=== PATIENT | female | born 1950 | race Caucasian/White ===

== ENCOUNTER 2018-08-12 09:05 | Inpatient (IN) | payer MEDICARE, BC ==
[2018-08-12] MEDS ORDERED: NS 0.9% 1000 ML* 1,000 ML IV ONE (09:33)
--- NOTE | 2018-08-12 09:42 | ED ---
HPI Chest Pain - HPI Summary HPI Summary: Patient is a 68 y/o F w/ c/o midsternal chest pain with radiation to back onsetting today at around 0100. Patient [facility] at [facility] today prior to arrival, she did not receive ASA or nitro. She arrived to ED via private car. She also reports epigastric pain. Patient states pain is constant while lying flat, sitting up alleviates pain. She denies pain with ambulation/ exertion. She notes that she also experienced hot flashes, near syncope, nausea and diarrhea. She denies PMHx of HTN, diabetes and previous cardiac stress test. FMHx of cardiac disease in both parents is noted. Patient states she has never smoked. PSHx of cholecystectomy. LE edema, SOB is denied. Pain is room is noted to have slightly lessened in the room. Patient denies pain medication. On triage, pain is rated 6/10, nothing is noted to aggravate/alleviate Sx. Home medications and allergies are reviewed. - History of Current Complaint Chief Complaint: EDChestPainROMI Time Seen by Provider: 08/12/18 09:21 Hx Obtained From: Patient Onset/Duration: Started Hours Ago - onset today 0100, Still Present Timing: Constant Pain Intensity: 6 - Allergy/Home Medications Allergies/Adverse Reactions: Allergies Allergy/AdvReac Type Severity Reaction Status Date / Time cefaclor Allergy Swelling Verified 08/12/18 08:11 Of Face,Lips,& Throat cefuroxime Allergy Swelling Verified 08/12/18 08:11 Of Face,Lips,& Throat celecoxib Allergy Swelling Verified 08/12/18 08:11 Of Face,Lips,& Throat erythromycin base Allergy GI Upset Verified 08/12/18 09:19 Penicillins Allergy Swelling Verified 08/12/18 08:11 Of Face,Lips,& Throat pineapple Allergy Swelling Verified 08/12/18 08:11 Of Face,Lips,& Throat pneumococcal 7-valent Allergy Swelling Verified 08/12/18 13:16 conjugate to Of Face,Lips,& Throat pneumococcal vaccine Allergy Swelling Verified 08/12/18 13:16 Of Face,Lips,& Throat rofecoxib Allergy Swelling Verified 08/12/18 08:11 Of Face,Lips,& Throat Sulfa (Sulfonamide Allergy Swelling Verified 08/12/18 08:11 Antibiotics) Of Face,Lips,& Throat Home Medications: Home Medications Gabapentin CAP(*) [Neurontin 400 mg CAP(*)] 400 mg PO BID 08/12/18 [History Confirmed 08/12/18] Glucosam/Chond/Collagen/Hyalur [Glucosamine Chondroitin/C] 1 cap PO DAILY [History Confirmed 08/12/18] Omeprazole CAP* [Prilosec CAP* 20 MG] 20 mg PO DAILY 08/12/18 [History Confirmed 08/12/18] Ranitidine TAB (NF) [Zantac TAB (NF)] 150 mg PO DAILY 08/12/18 [History Confirmed 08/12/18] Risedronate (NF) [Actonel (NF)] 150 mg PO MONTHLY 08/12/18 [History Confirmed ] Rosuvastatin (NF) [Crestor (NF)] 5 mg PO EVERY OTHER DAY 08/12/18 [History Confirmed 08/12/18] Spironolactone TAB* [Aldactone TAB*] 25 mg PO DAILY 08/12/18 [History Confirmed 08/12/18] PMH/Surg Hx/FS Hx/Imm Hx Endocrine/Hematology History: Denies: Hx Diabetes, Hx Thyroid Disease Cardiovascular History: Denies: Hx Hypertension, Hx Pacemaker/ICD Respiratory History: Denies: Hx Asthma, Hx Chronic Obstructive Pulmonary Disease (COPD) GI History: Denies: Hx Ulcer History: Denies: Hx Renal Disease Sensory History: Denies: Hx Hearing Aid Psychiatric History: Denies: Hx Panic Disorder - Surgical History Surgery Procedure, Year, and Place: 2 c-sections and choley Infectious Disease History: No Infectious Disease History: Denies: Hx Hepatitis, Hx Human Immunodeficiency Virus (HIV), Traveled Outside the [place] in Last 30 Days - Family History Known Family History: Positive: Cardiac Disease, Hypertension - Social History Alcohol Use: Occasionally Substance Use Type: Reports: None Smoking Status (MU): Never Smoked Tobacco Review of Systems All Other Systems Reviewed And Are Negative: Yes Physical Exam - Summary Physical Exam Summary: Appearance: Well appearing, no pain distress Skin: warm, dry, reflects adequate perfusion Head/face: normal Eyes: EOMI, SAMRA ENT: normal Neck: supple, non-tender Respiratory: CTA, breath sounds present Cardiovascular: RRR, pulses symmetrical Abdomen: epigastric tenderness, soft Bowel: present Musculoskeletal: normal, strength/ROM intact Neuro: normal, sensory motor intact, A&Ox3 Triage Information Reviewed: Yes Vital Signs On Initial Exam: Initial Vitals Temp Pulse Resp BP Pulse Ox 98 F 70 21 148/90 99 08/12/18 09:19 08/12/18 09:19 08/12/18 09:19 08/12/18 09:19 08/12/18 09:19 Vital Signs Reviewed: Yes Diagnostics - Vital Signs Vital Signs Temp Pulse Resp BP Pulse Ox 08/12/18 09:19 98 F 70 21 148/90 99 - Laboratory Result Diagrams: 08/12/18 10:06 08/12/18 10:06 Lab Statement: Any lab studies that have been ordered have been reviewed, and results considered in the medical decision making process. - Radiology CXR Radiology Interpretation Completed By: Radiologist Summary of Radiographic Findings: No active cardiopulmonary disease, this report was reviewed by ED physician. - CT chest/abdomen/pelvis CT Interpretation Completed By: Radiologist Summary of CT Findings: IMPRESSION: 1. NO AORTIC INTIMAL FLAP TO SUGGEST DISSECTION. 2. NO PULMONARY ARTERIAL FILLING DEFECT TO SUGGEST PULMONARY EMBOLISM. 3. STATUS POST CYSTECTOMY WITH INTRAHEPATIC AND EXTRAHEPATIC BILIARY DILATATION EXTENDING. TO THE LEVEL OF THE COMMON DUCT. 4. PROMINENCE OF THE VASCULATURE ALONG THE LEFT HEMIPELVIS SUGGESTIVE OF PELVIC. CONGESTION SYNDROME IN THE CORRECT CLINICAL SETTING. 5. DIVERTICULOSIS. THIS REPORT WAS REVIEWED BY ED PHYSICIAN. - EKG 0937 Cardiac Rate: NL - rate of 60 bpm EKG Rhythm: Sinus Rhythm Summary of EKG Findings: no acute changes Re-Evaluation - Re-Evaluation First Eval Re-Evaluation Time: 12:18 Comment: Discussed results of tests and labs as well as admission with patient. Patient is agreeable with admission. Chest Pain Course/Dx - Course Course Of Treatment: Patient is a 68 y/o F w/ c/o midsternal chest pain with radiation to back onsetting today at around 0100. Patient was seen at [facility] today prior to arrival, she did not receive ASA or nitro. She also reports epigastric pain. She denies pain with ambulation/exertion. She notes that she also experienced hot flashes, near syncope, nausea and diarrhea. LE edema, SOB is denied. Physical exam showed epigastric tenderness. During ED course, patient received fluids. CXR showed no active cardiopulmonary disease, this report was reviewed by ED physician. EKG showed sinus rhythmn with rate of 60 BPM, no acute changes. Bloodwork/UA obtained. CTA CHEST/THORAX/PELVIS IMPRESSION: 1. NO AORTIC INTIMAL FLAP TO SUGGEST DISSECTION. 2. NO PULMONARY ARTERIAL FILLING DEFECT TO SUGGEST PULMONARY EMBOLISM. 3. STATUS POST CYSTECTOMY WITH INTRAHEPATIC AND EXTRAHEPATIC BILIARY DILATATION EXTENDING. TO THE LEVEL OF THE COMMON DUCT. 4. PROMINENCE OF THE VASCULATURE ALONG THE LEFT HEMIPELVIS SUGGESTIVE OF PELVIC. CONGESTION SYNDROME IN THE CORRECT CLINICAL SETTING. 5. DIVERTICULOSIS. 1215 - Patient's case was discussed with Dr. Ray. Dr. Ray accepts for admission. Patient is agreeable with admission. Dx of abdominal pain, pancreatitis and hepatitis. needs MRCP/ ERCP - Chest Pain Differential Diagnosis/HQI/PQRI: Acute UT, GI Disease, Other: - abd pain - Diagnoses Provider Diagnoses: Abdominal pain, Hepatitis, Pancreatitis - Provider Notifications Discussed Care Of Patient With: Elsy Ray Time Discussed With Above Provider: 12:15 Instructed by Provider To: Other - 1215 - Patient's case was discussed with Dr. Rya. Dr. Ray accepts for admission. Discharge - Sign-Out/Discharge Documenting (check all that apply): Patient Departure - admit - Discharge Plan Condition: Good Disposition: ADMITTED TO [facility] Referrals: Cheyenne Carpenter MD [Primary Care Provider] - - Billing Disposition and Condition Condition: GOOD Disposition: Admitted to [facility] - Attestation Statements Document Initiated by Daviibe: Yes Documenting Scribe: Emerson Arevalo Provider For Whom Scribe is Documenting (Include Credential): Andre Denny MD Scribe Attestation: Emerson Kowalski , scribed for Andre Denny MD on 08/12/18 at 1437. Scribe Documentation Reviewed: Yes Provider Attestation: The documentation as recorded by the Emerson ortega accurately reflects the service I personally performed and the decisions made by me, Andre Denny MD
--- NOTE | 2018-08-12 10:11 | RAD ---
HISTORY: cp COMPARISONS: None VIEWS: 1: frontal AP view of the chest at 9:47 AM FINDINGS: LINES AND TUBES: None. CARDIOMEDIASTINAL SILHOUETTE: The cardiomediastinal silhouette is normal for portable technique. PLEURA: The costophrenic angles are sharp. No pleural abnormalities are noted. LUNG PARENCHYMA: The lungs are clear. ABDOMEN: The upper abdomen is clear. There is no subphrenic gas. BONES AND SOFT TISSUES: No bone or soft tissue abnormalities are noted. IMPRESSION: NO ACTIVE CARDIOPULMONARY DISEASE.
[2018-08-12 10:50] LABS: ABS Basophils 0 10^3/ul (0-0.2); ABS Eosinophils 0 10^3/ul (0-0.6); ABS Lymphocytes 0.6 10^3/ul (1.0-4.8); ABS Monocytes 0.5 10^3/ul (0-0.8); ABS Neutrophils 7.1 10^3/ul (1.5-7.7); ABS Nucleated RBC 0 10^3/ul; Eosinophil % 0.2 % (0-6); Hematocrit 43 % (35-47); Lymphocyte % 7.4 % (25-47); Mean Corpuscular HGB Conc 35 g/dl (31-36); Mean Corpuscular Hemoglobin 32 pg (27-31); Mean Corpuscular Volume 91 fL (80-97); Mean Platelet Volume 8.1 um3 (7.4-10.4); Nucleated Red Blood Cells % 0; Platelet Count 237 10^3/ul (150-450); Red Blood Count 4.74 10^6/ul (4.00-5.40); Red Cell Distribution Width 14 % (10.5-15); White Blood Count 8.2 10^3/ul (3.5-10.8)
[2018-08-12 11:01] LABS: EGFR Non-African American 69.9 (>60)
[2018-08-12] MEDS ORDERED: Iohexol 350* (CONTRAST) 500 ML MDV IV ONE (11:05)
[2018-08-12 11:36] LABS: Urine Appearance Clear; Urine Blood 1+ (Negative); Urine Color Yellow; Urine Ketones Negative (Negative); Urine Protein Negative (Negative); Urine Red Blood Cell Trace(0-2/hpf) (Absent); Urine Specific Gravity 1.004 (1.010-1.030); Urine Urobilinogen Negative (Negative); Urine White Blood Cell Trace(0-5/hpf) (Absent)
--- NOTE | 2018-08-12 11:47 | RAD ---
HISTORY: chest pain/epigastric pain radiating to the back COMPARISONS: None TECHNIQUE: Multiple contiguous axial CT scans were obtained of the chest, abdomen, and pelvis after the administration of intravenous contrast. Coronal and sagittal multiplanar reformations are submitted for review.. Oral contrast was not administered. 3-D volumetric reconstructions of the aorta are also submitted for review. FINDINGS: CHEST NECK AND THYROID: The lower neck and thyroid are unremarkable. CHEST WALL: There is no lower cervical, axillary, or supraclavicular lymphadenopathy by size criteria. HEART AND PERICARDIUM: The heart is unremarkable. AORTA AND PULMONARY VASCULATURE: The aorta and pulmonary vasculature are normal. There is no pulmonary arterial filling defect to suggest pulmonary embolism. There is no intimal flap to suggest aortic dissection. There is no aortic aneurysmal dilatation or periaortic hematoma. MEDIASTINUM: There is no mediastinal lymphadenopathy by size criteria. CHRISTINA: There is no hilar lymphadenopathy by size criteria. AIRWAY AND ESOPHAGUS: The airway is unremarkable, without endobronchial filling defect. The esophagus is grossly normal. LUNG PARENCHYMA: The lungs are clear. PLEURA: No pleural abnormalities are noted. BONES AND SOFT TISSUES: Mild degenerative changes are noted. ABDOMEN/PELVIS: LIVER: The liver is normal in shape, size, contour, and attenuation. BILE DUCTS: There is dilatation of the common duct up to 1.8 cm. There is moderate intrahepatic biliary dilatation. The common duct dilatation extends to the level of the ampulla. GALLBLADDER: The gallbladder is not visualized. Surgical clips are noted in the gallbladder fossa. PANCREAS: The pancreas is normal, without mass or ductal dilatation. SPLEEN: Normal in size and appearance. UPPER GI TRACT: Evaluation of the gastrointestinal tract is limited by incomplete gastric distention. The upper GI tract is unremarkable. SMALL BOWEL & MESENTERY: The small bowel is normal in contour, course, and caliber. There is no obstruction or dilatation. COLON: There are multiple diverticula of the distal colon. There are also scattered diverticula of the ascending colon. There is no pericolonic inflammatory change. ADRENALS: Normal bilaterally. KIDNEYS: The kidneys are normal in shape, size, contour, and axis. There is no hydronephrosis or nephrolithiasis. BLADDER: The bladder is smooth in contour. PELVIC ORGANS: There is prominence of the pelvic vasculature on the left with enlargement of the left gonadal vein with early filling. The uterus and adnexa are otherwise grossly normal for technique. AORTA: The aorta is normal. IVC: Unremarkable LYMPH NODES: There is no lymphadenopathy by size criteria. ABDOMINAL WALL: There is no evidence for abdominal wall hernia. BONES AND SOFT TISSUES: There is grade 1 anterolisthesis of L4 on L5. Mild degenerative changes are noted. OTHER: None IMPRESSION: 1. NO AORTIC INTIMAL FLAP TO SUGGEST DISSECTION. 2. NO PULMONARY ARTERIAL FILLING DEFECT TO SUGGEST PULMONARY EMBOLISM. 3. STATUS POST CYSTECTOMY WITH INTRAHEPATIC AND EXTRAHEPATIC BILIARY DILATATION EXTENDING TO THE LEVEL OF THE COMMON DUCT. 4. PROMINENCE OF THE VASCULATURE ALONG THE LEFT HEMIPELVIS SUGGESTIVE OF PELVIC CONGESTION SYNDROME IN THE CORRECT CLINICAL SETTING. 5. DIVERTICULOSIS.
[2018-08-12 12:01] LABS: INR 0.86 (0.77-1.02)
[2018-08-12] MEDS ORDERED: Ondansetron INJ* 2 MG/ML VIAL IV PRN (13:08)
[2018-08-12] MEDS ORDERED: Morphine INJ* 4 MG/ML 1 ML SYRINGE (NEW SYRINGE VERSION) IV PRN (13:08)
[2018-08-12] MEDS ORDERED: Heparin VIAL(*) 5000 UNITS/ML VIAL (FIVE THOUSAND) SUBCUT SCH (14:00)
--- NOTE | 2018-08-12 16:07 | RAD ---
HISTORY: Question common bile duct stone COMPARISONS: CTA dated August 12, 2018 TECHNIQUE: The following sequences were obtained of the abdomen as part of an MRCP: Axial T2-weighted images, coronal single shot fast spin-echo T2-weighted images, coronal heavily T2-weighted MRCP images with 3-D thick slab maximum intensity projection reconstructions. FINDINGS: LIVER: No focal parenchymal mass. GALLBLADDER: The patient is status post cholecystectomy. BILIARY TREE: Again noted is intrahepatic and extrahepatic biliary dilatation. There is dilatation of the residual cystic duct. The common duct dilatation extends to the level of the ampulla. There is no appreciable filling defect. PANCREAS: The pancreatic duct is patent without filling defect or cut off or dilatation. SPLEEN: Homogeneous in signal intensity. BOWEL: Unremarkable KIDNEYS: Simple renal cysts are noted. BONES AND SOFT TISSUES: Unremarkable IMPRESSION: AGAIN NOTED IS INTRAHEPATIC AND EXTRAHEPATIC BILIARY DILATATION, EXTENDING TO THE LEVEL OF THE AMPULLA, WITHOUT APPRECIABLE FILLING DEFECT TO SUGGEST COMMON DUCT STONE.
[2018-08-12] MEDS: NS 0.9% 1000 ML* 1,000 ML IV SCH (16:26)
[2018-08-12] MEDS: Pantoprazole IV* 40 MG IV SCH (16:51)
--- NOTE | 2018-08-12 20:09 | HP ---
AMENDED REPORT NOW INCLUDES DESIGNATED COSIGNER CC: Cheyenne Madrid MD. * HISTORY AND PHYSICAL: DATE OF ADMISSION: 08/12/18 PRIMARY CARE PHYSICIAN: Cheyenne Madrid MD ATTENDING PHYSICIAN: Elsy Ray MD * (dictation provided by Zoie Gavin NP) CHIEF COMPLAINT0: Diarrhea, epigastric and chest pain radiating into her back. HISTORY OF PRESENT ILLNESS: Ms. Yu is a 68-year-old female with a past medical history of GERD, cholecystectomy, and 2 C-sections who presents to the hospital today with concern for the sudden onset of diarrhea last night with epigastric and chest pain radiating into her back. Ms. Yu states that she was in her normal state of health until yesterday. During the day, she had what she describes as frequent and excessive gas. She began to have diarrhea in the evening. She then had diarrhea throughout the night and was up multiple times. She reports liquid yellow stool. She had mid to epigastric pain radiating up into her chest and then radiating into her back as well. She went to [facility] this morning for evaluation, but was told that she needed evaluation in the emergency room. She drove here by car. She denies any recent shortness of breath or cough. She has had no fever. In the emergency room, Ms. Yu had labs, which showed normal white blood cell count and no fever. She had elevated LFTs with a total bilirubin of 2.6, AST 493, ALT 281. Alk phos 109 as well as an elevated lipase at 175. Her electrolytes and kidney function were normal. Her troponin was normal. She had a chest, abdomen and pelvis CTA, which showed concern for intra and extrahepatic ductal dilatation, all the way up to the common bile duct. PAST MEDICAL HISTORY: 1. GERD. 2. Cholecystectomy in [address] [facility]. 3. x2. 4. Mild lower extremity edema, treated with spironolactone. 5. Osteoporosis. The patient states because of a history of liver cancer in her paternal grandparents, she has had frequent evaluations with an upper and lower endoscopy with Dr. Edwards who is a warehouse director in [place]. The patient states that in the past she has had stomach polyps. Her last upper endoscopy was in January and it was negative per report. At that time, she also had a colonoscopy that was also reported to be negative. MEDICATIONS: 1. Glucosamine chondroitin 1 cap p.o. daily. 2. Rosuvastatin 5 mg p.o. every other day. 3. Risedronate 150 mg p.o. monthly. 4. Ranitidine 150 mg p.o. daily. 5. Spironolactone 25 mg p.o. daily. 6. Gabapentin 400 mg p.o. b.i.d. 7. Omeprazole 20 mg p.o. daily. ALLERGIES: CEFACLOR, CEFUROXIME, CELECOXIB, ERYTHROMYCIN, PENICILLIN, PINEAPPLE , ROFECOXIB, SULFA and PNEUMONIA. FAMILY HISTORY: The patient reports her paternal grandmother and grandfather both had liver cancer. Her mother related to heart failure at 79 and dad related to lung cancer, but also had some heart disease and in his 80s. SOCIAL HISTORY: No report of tobacco or drug use. The patient states she drinks one dorys per night. REVIEW OF SYSTEMS: A 14 point review of systems is completed with Ms. Yu and all those not mentioned above were negative. PHYSICAL EXAMINATION GENERAL APPEARANCE: Ms. Yu is sitting on the bed, she is in no acute distress. She does report some intermittent abdominal cramping and discomfort. She also reports back pain. VITAL SIGNS: Temperature 98, pulse rate 61, respiratory rate 14, O2 saturation 97% on room air, and blood pressure 112/72. HEENT: Extraocular movements are intact. LUNGS: Clear to auscultation bilaterally. No accessory muscle use and good aeration. HEART: S1, S2. No murmurs, rubs or gallops. ABDOMEN: Soft. There is tenderness to deep palpation in the mid abdomen. Bowel sounds are positive. EXTREMITIES: No cyanosis or edema. NEUROLOGIC: She is alert. She is oriented x3. She moves all extremities equally. There is no facial asymmetry or focal weakness. Skin: Intact. DIAGNOSTIC STUDIES/LAB DATA: Sodium 139, potassium 4.1, chloride 106, serum bicarbonate 25, BUN 15, creatinine 0.81, glucose 91, lactic acid 1.0, T. bili 2.6, AST 493, ALT 281, alk phos 109, troponin 0.00 followed by second troponin, which was also 0.00, BNP 38, lipase 175. Urine shows 1+ leuk esterase 1+ blood , no nitrite, no bacteria. The EKG shows sinus rhythm with a heart rate of 60 and no evidence of ischemia. The chest x-ray shows no acute intra-thoracic process. The chest, abdomen, pelvis CTA shows no aortic intimal flap to suggest dissection, no pulmonary arterial filling defect to suggest pulmonary embolism, status post cystectomy with intrahepatic and extrahepatic biliary dilatation extending to the level of the common duct. Prominence of the vasculature along the left hemipelvis suggestive of pelvic congestion syndrome in the correct clinical setting, diverticulosis. ASSESSMENT AND PLAN: Ms. Yu is a 68-year-old female with past medical history of cholecystectomy and gastroesophageal reflux disease who presents to the hospital with concern for the sudden onset yesterday of diarrhea with abdominal pain that radiated into the chest and back. In the emergency room, she has been found to have elevated LFTs and a CT scan showing intra-and extra hepatic ductal dilatation as well as an elevated lipase. Our plans are for inpatient admission as expected length of stay would be greater than 2 days for the followin. Epigastric abdominal and back pain: I think her symptoms are all connected to this finding of intra and extrahepatic ductal dilatation as well as findings of elevated lipase and LFTs. She does have a history cholecystectomy but could have a common bile duct stone. She could also have an extrinsic mass causing dilatation as well. The patient will need MRCP for further evaluation. I have discussed the case with Dr. Romano who will be consulting on her. At this point, the patient has no evidence of infection. She has no leukocytosis, no fever, but we will be monitoring closely for that. At this point, Dr. Romano had stated no antibiotics are indicated. She will have intravenous fluids. She will have has ice chips only. 2. Gastroesophageal reflux disease. Plan to provide pantoprazole IV in lieu of her home medications. 3. Chronic pain. Continue gabapentin. 4. DVT prophylaxis with SCDs only. 5. Diarrhea: The patient reports that she has had diarrhea throughout the night and is now reporting some blood in the stool. It is unclear how this is related to her complaint of upper abdominal pain and biliary dilatation. We will send stool culture. We will monitor H and H and monitor her vital signs. I have discussed this finding with Dr. Romano today. 6. Code status is full code. TIME SPENT: Approximately 60 minutes were spent on the admission of this patient, more than half the time spent with the patient at the bedside reviewing the events leading up to this hospitalization, performing the physical examination, and reviewing the plan of care. ZOIE GAVIN NP [id number]/[facility] #: [id number] DIEGO
[2018-08-12 20:13] LABS: Hematocrit 40 % (35-47); Hemoglobin 13.9 g/dl (12.0-16.0)
[2018-08-12] MEDS: Gabapentin CAP(*) 400 MG PO SCH (20:45)
--- NOTE | 2018-08-13 01:48 | CONS ---
GASTROENTEROLOGY CONSULT: DATE: 08/12/18 - ROOM #416 CONSULTING PRACTITIONERS: Zoie Gavin NP; Cheyenne Carpenter MD REASON FOR CONSULTATION: Chest and epigastric pain with elevated LFTs, but also a preceding complaint of diarrhea, which turned bloody. HISTORY: This 68-year-old woman, who has been treated long-term for acid reflux with omeprazole and ranitidine, last night suddenly developed epigastric and chest pain. She awakened around 1 a.m and says "I thought I was having a heart attack." She got up and chewed on an aspirin as she thought that was something advisable to do and then inexplicably decided to do nothing until the morning. She continued to have intermittent pain. In the ER, cardiac studies were negative, but LFTs were elevated with bili 2.6. In the ER, she was having profuse diarrhea, which turned bloody. The diarrhea actually had started yesterday afternoon before the chest pain and she admits she had had pizza on Wednesday night, then leftover pizza and then greasy nachos through the middle of the day, . She follows up generally with Dr Edwards in [place] for upper endoscopies and colonoscopies, and just had them repeated in January. She believes they were all fine except there was 1 small polyp for the first time on the colonoscopy. PAST MEDICAL HISTORY: 1. Cholecystectomy, 1999. 2. C-sections twice. 3. Osteopenia - on Actonel. 4. Chronic GERD - on a.m. omeprazole and p.m. ranitidine with good control. MEDICATIONS: At home, atenolol 50; hydrochlorothiazide 25; fenofibrate 145 every other day; Zocor 10 mg; metformin 750 in the morning. ALLERGIES: To NUMEROUS ANTIBIOTICS. SOCIAL HISTORY: She lives in [facility] and has a daughter in [place]. She is a lifetime nonsmoker. REVIEW OF SYSTEMS: She is on unselect diet with no dietary restrictions other than pineapple. There is no recent history of URI or infection or antibiotic use. There is no history of lung disease, angina, syncope, palpitations, hepatitis, or jaundice. She is not prone to diarrhea and says her bowel habit is generally regular. PHYSICAL EXAM: She is a healthy-appearing, older woman, in no distress. She says her pain has disappeared. HEENT exam shows no icterus. She has no adenopathy. Her lungs are clear. Her heart sounds are regular. Her abdomen is symmetric with a lower scar corresponding to history with no hernias. There is no mass. Perianal inspection is normal and rectal reveals a withdrawal response and clamping down. She cannot relax. There was no specimen. Extremities show no edema. Neurologic: Nonfocal with normal mentation and cranial nerves with movement of all 4 extremities. LABORATORY DATA: Bilirubin 2.6, ALT 281, alk phos 109. BNP 38. Albumin of 4.1. White count 8.2, hemoglobin 15.0, MCV 91. IMPRESSION: This 68-year-old woman with a history quite characteristic of a passing common duct stone has labs which are compatible with that. A common duct stone can occur even 20 yrs after she had a cholecystectomy. MRCP is requested and her LFTs will be followed serially to determine whether an ERCP would be indicated. There is no sign of cholangitis The history of diarrhea accompanying this and actually preceding the chest pain is unexplained but has persisted and with blood seen out of proportion to hemorrhoidal bleeding has to be respected. Ischemic colitis on top of biliary process is a possibility. Flexible sigmoidoscopy / colon may be warranted depending on her course. [id number]/[facility] #: [id number] [facility]
[2018-08-13] MEDS: NS 0.9% 1000 ML* 1,000 ML IV SCH ×2 (06:23→21:28)
[2018-08-13 07:37] LABS: ABS Basophils 0 10^3/ul (0-0.2); ABS Eosinophils 0 10^3/ul (0-0.6); ABS Lymphocytes 1.1 10^3/ul (1.0-4.8); ABS Monocytes 0.4 10^3/ul (0-0.8); ABS Neutrophils 3.5 10^3/ul (1.5-7.7); ABS Nucleated RBC 0 10^3/ul; Eosinophil % 0.8 % (0-6); Hematocrit 38 % (35-47); Hemoglobin 12.9 g/dl (12.0-16.0); Lymphocyte % 21.6 % (25-47); Mean Corpuscular HGB Conc 34 g/dl (31-36); Mean Corpuscular Hemoglobin 31 pg (27-31); Mean Corpuscular Volume 91 fL (80-97); Mean Platelet Volume 7.8 um3 (7.4-10.4); Nucleated Red Blood Cells % 0.1; Platelet Count 216 10^3/ul (150-450); Red Blood Count 4.13 10^6/ul (4.00-5.40); Red Cell Distribution Width 14 % (10.5-15)
[2018-08-13 07:54] LABS: EGFR Non-African American 85.5 (>60)
[2018-08-13] MEDS: Gabapentin CAP(*) 400 MG PO SCH ×2 (09:16→21:42)
[2018-08-13] MEDS ORDERED: fentaNYL* 50 MCG/ML 2 ML VIAL (100 MCG VIAL) ONE (11:24)
[2018-08-13] MEDS ORDERED: Midazolam* 1 MG/ML 10 ML VIAL (10 MG) ONE (11:25)
[2018-08-13] MEDS ORDERED: Loperamide CAP* 2 MG PO ONE (12:37)
--- NOTE | 2018-08-13 14:48 | PN ---
Subjective Date of Service: 08/13/18 Interval History: Pt seen and examined. Meds and labs reviewed. Pt seen S/P colonoscopy due to her acute watery, with occasional bloody diarrhea. Mentioned that last abd pain was last night. D/W Dr. Romano. CC: Diarrhea ROS: Denied LYON/dizziness, F/C, N/V, CP, SOB, increased cough, sputum production , abd pain, diarrhea, constipation, dysuria, myalgias, arthralgias, throat pain , and new skin lesions. The rest of the 14 point ROS are unremarkable. PHYSICAL EXAM: GEN APPEARANCE: Awake, not in acute distress HEENT: NC/AT, PERRLA, moist oral mucosa, (-) throat erythema NECK: Soft, supple, (-) cervical LAD, (-)JVD HEART: S1S2 WNL, RRR, No MRG CHEST: CTA, BL, GAE, No W/R/R ABD: Soft, ND/NT, NABS 4x Q EXT: No C/C/E SKIN: Warm to touch PSYCH: No active psychosis, hallucinations, depression, SI/HI Objective Active Medications: Gabapentin (Neurontin Cap(*)) 400 mg PO BID [facility] Last Admin: 08/13/18 09:16 Dose: 400 mg Sodium Chloride (Ns 0.9% 1000 Ml*) 1,000 mls @ 75 mls/hr IV PER RATE [facility] Last Admin: 08/13/18 06:23 Dose: 75 mls/hr Loperamide HCl (Imodium Cap*) 2 mg PO Q8H PRN PRN Reason: DIARRHEA Morphine Sulfate (Morphine Inj (Syringe)*) 4 mg IV Q4H PRN PRN Reason: PAIN Ondansetron HCl (Zofran Inj*) 4 mg IV Q6H PRN PRN Reason: NAUSEA Pantoprazole Sodium (Protonix Iv*) 40 mg IV Q24H [facility] Last Admin: 08/12/18 16:51 Dose: 40 mg Vital Signs - 8 hr 08/13/18 08/13/18 08/13/18 07:40 08:00 09:16 Temperature 98.2 F Pulse Rate 81 Respiratory 16 16 16 Rate Blood Pressure 118/61 (mmHg) O2 Sat by Pulse 98 Oximetry 08/13/18 13:10 Temperature 97.6 F Pulse Rate 69 Respiratory 14 Rate Blood Pressure 114/64 (mmHg) O2 Sat by Pulse 97 Oximetry Oxygen Devices in Use Now: None Result Diagrams: 08/13/18 07:06 08/13/18 07:06 Microbiology and Other Data: Microbiology 08/12/18 11:20 Urine Culture - Final Urine No Growth (<1,000 CFU/mL) 08/13/18 01:51 Stool Gross Appearance - Final Stool C. difficile DNA Amplification - Final 027 Presumptive NEGATIVE Toxigenic C.diff NEGATIVE 08/12/18 18:30 Stool Gross Appearance - Final Stool Assess/Plan/Problems-Billing Assessment: - Patient Problems (1) Epigastric pain Current Visit: Yes Status: Acute Code(s): R10.13 - EPIGASTRIC PAIN SNOMED Code(s): 78832134 Comment: -Initially thought to be due to retained stoned post-cholecystectomy, however, MRCP did not reveal any stones in CBD given CTA of abd shows intrahepatic and extrahepatic biliary dilatation at level of CBD -Possible that she could have already passed a retained stone, hence, radiation of pain to the back? -Per Dr. Romano, no ERCP for now given resolution of abd pain and improving LFTsmay reconsider if pt becomes symptomatic once more or LFTs increasing -Colonoscopy surveillance per Dr. Romano reveals purulent ileitis/colitis?? Possibly due to Chrons disease given pt afebrile without leukocytosis and now with resolved abd pain -Doubt ischemic colitis given no suggestion of this from my conversation with Dr. Romano post-colonoscopy, pt having stable VS with no incidence of hypotension, and LDH and lactate level being normal -No evidence of acute pancreatitis (2) Elevated LFTs Current Visit: Yes Status: Acute Code(s): R94.5 - ABNORMAL RESULTS OF LIVER FUNCTION STUDIES SNOMED Code(s): 712227983 Comment: -Please see above discussion -Will rule out for viral hepatitis, especially A&E given diarrhea (3) Diarrhea Current Visit: Yes Status: Acute Code(s): R19.7 - DIARRHEA, UNSPECIFIED SNOMED Code(s): 96592900 Comment: -Unclear cause, however, given above colonoscopy findings in absence of leukocytosis and fevers, possible that pt may have Crohns disease, usually associated with PSC; however, no beaded appearance suggestive of this MRCP -Occasionally bloody -Still possible to maybe due to bile and pancreatic secretion deficiency due to possible intermittent obstruction earlier in course??? Possible from passed retained stone from CBD or viral hepatitis causing diarrhea and LFTs to elevate? -C. diff (-) -Awaiting results of stool culture -Hold Abx for now -Will check and calculate for stool osmolal gap to better define diarrhea type -Agree with starting PO intake with low fat, low fiber, low lactose diet -Awaiting fecal lactoferrin (4) Chest pain Current Visit: Yes Status: Acute Code(s): R07.9 - CHEST PAIN, UNSPECIFIED SNOMED Code(s): 99463998 Comment: -Resolved -Likely from misinterpreted epigastric pain described above -CTA Chest (-) for PE (5) GERD (gastroesophageal reflux disease) Current Visit: Yes Status: Acute Code(s): K21.9 - GASTRO-ESOPHAGEAL REFLUX DISEASE WITHOUT ESOPHAGITIS SNOMED Code(s): 688634919 Comment: -Continue Pantoprazole (6) DVT prophylaxis Current Visit: Yes Status: Acute Code(s): FXZ3735 - SNOMED Code(s): 965315737 Comment: -Continue SCDs given intermittent BRBPR reported by pt Status and Disposition: -As above
[2018-08-13] MEDS: Pantoprazole IV* 40 MG IV SCH (15:05)
--- NOTE | 2018-08-13 15:25 | PRO ---
DATE: 08/13/18 - ROOM #[id number] REFERRING PHYSICIAN: Cheyenne Madrid MD * PROCEDURE: Colonoscopy and ileoscopy with collection of fecal aspirate for culture and biopsy of terminal ileum and mid right colon. INDICATION: This 68-year-old woman developed diarrhea 2 days ago and 8 to 12 hours later, on the same day developed chest pain. She actually took a chewable aspirin at home at 1 a.m. ("I thought I was having a heart attack") and then came to the emergency room 6 or 7 hours later because of both complaints, though the cardiac concern was primary at start and then just an hour later elevated LFTs became of chief focus. She has not had further chest pain. Troponins have been negative and her LFTs have improved somewhat and MRCP negative. She has continued to have loose stools and they have been bloody at times. She has been afebrile throughout with a normal white count initially 8.2, then 5.0 and albumin on presentation was 4.1. Stool was negative for C. diff and stool culture pending. She is not on any antibiotic and actually has listed allergies to 2 CEPHALOSPORINS, PENICILLINS, SULFA, and ERYTHROMYCIN (GI upset for ERYTHROMYCIN) . With continued diarrhea, unprepped colonoscopy is planned. ENDOSCOPIST: Dr. Romano MEDICATIONS: Midazolam 13, fentanyl 150. FINDINGS: She is a slender, older woman, in no distress at this time, though complaining that she has cramps and loose stools recurrently. Her abdomen is flat, with active bowel sounds and it is firm; she has some voluntary guarding, but no rigidity or rebound. Perianal inspection and rectal are normal apart from mucoid diarrhea. Initial views show smooth intact mucosa with some mucus, minimal strands of blood, and a little bit of granularity and patchy erythema. The changes are fairly mild. The scope advances through the sigmoid, descending, and transverse encountering very mild erythema and granular changes of a patchy nature. In the right colon, there are some superficial spotty exudates and more edema and loss of vascular pattern. The ileocecal valve has some purulence around it. The cecum has some vascular pattern evident with mild erythema. The terminal ileum has a fair amount of mucopus and dots of exudate sprinkled around. There are no aphthoid erosions. Much of the terminal ileal villous pattern appears normal. Biopsies were obtained from terminal ileal exudative spots and from similar areas in the mid right colon. On slow withdrawal, no polyps were seen. IMPRESSION: Ileocolitis - right side predominating and most likely infectious. With a normal white count and lack of fever or systemic signs, it is atypical. She actually states she was hungry today. Abrupt onset inflammatory bowel disease cannot be ruled out, but seems unlikely. [id number]/[facility] #: [id number] MTDD
[2018-08-13] MEDS: Loperamide CAP* 2 MG PO PRN (22:39)
[2018-08-14] MEDS: Loperamide CAP* 2 MG PO PRN ×3 (06:52→23:18)
[2018-08-14 07:33] LABS: Hematocrit 40 % (35-47); Hemoglobin 13.6 g/dl (12.0-16.0); Mean Corpuscular HGB Conc 34 g/dl (31-36); Mean Corpuscular Hemoglobin 31 pg (27-31); Mean Corpuscular Volume 91 fL (80-97); Mean Platelet Volume 8.5 um3 (7.4-10.4); Platelet Count 234 10^3/ul (150-450); Red Blood Count 4.33 10^6/ul (4.00-5.40); Red Cell Distribution Width 14 % (10.5-15); White Blood Count 6.1 10^3/ul (3.5-10.8)
[2018-08-14] MEDS ORDERED: Magnesium Sulfate 2 GM IV* 2 GM/50 ML BAG IVPB ONE (08:29)
[2018-08-14] MEDS: Gabapentin CAP(*) 400 MG PO SCH ×2 (08:49→22:12)
[2018-08-14] MEDS ORDERED: Sodium Phosphate INJ* 10 MMOLE in NS 0.9% 250 ML* 250 ML IVPB ONE (09:00)
[2018-08-14] MEDS: NS 0.9% 1000 ML* 1,000 ML IV SCH (10:07)
[2018-08-14] MEDS: Pantoprazole IV* 40 MG IV SCH (13:17)
--- NOTE | 2018-08-14 15:36 | PN ---
Subjective Date of Service: 08/14/18 Interval History: Pt seen and examined. Meds and labs reviewed. Pt seen S/P colonoscopy due to her acute watery, with occasional bloody diarrhea. Mentioned that last abd pain was last night. D/W Dr. Romano. CC: Diarrhea ROS: Denied LYON/dizziness, F/C, N/V, CP, SOB, increased cough, sputum production , abd pain, diarrhea, constipation, dysuria, myalgias, arthralgias, throat pain , and new skin lesions. The rest of the 14 point ROS are unremarkable. PHYSICAL EXAM: GEN APPEARANCE: Awake, not in acute distress HEENT: NC/AT, PERRLA, moist oral mucosa, (-) throat erythema NECK: Soft, supple, (-) cervical LAD, (-)JVD HEART: S1S2 WNL, RRR, No MRG CHEST: CTA, BL, GAE, No W/R/R ABD: Soft, ND/NT, NABS 4x Q EXT: No C/C/E SKIN: Warm to touch PSYCH: No active psychosis, hallucinations, depression, SI/HI Objective Active Medications: Gabapentin (Neurontin Cap(*)) 400 mg PO BID [facility] Last Admin: 08/14/18 08:49 Dose: 400 mg Sodium Chloride (Ns 0.9% 1000 Ml*) 1,000 mls @ 75 mls/hr IV PER RATE [facility] Last Admin: 08/14/18 10:07 Dose: 75 mls/hr Loperamide HCl (Imodium Cap*) 2 mg PO Q8H PRN PRN Reason: DIARRHEA Last Admin: 08/14/18 14:52 Dose: 2 mg Morphine Sulfate (Morphine Inj (Syringe)*) 4 mg IV Q4H PRN PRN Reason: PAIN Ondansetron HCl (Zofran Inj*) 4 mg IV Q6H PRN PRN Reason: NAUSEA Pantoprazole Sodium (Protonix Iv*) 40 mg IV Q24H [facility] Last Admin: 08/14/18 13:17 Dose: 40 mg Vital Signs - 8 hr 08/14/18 08/14/18 08/14/18 07:45 08:49 08:52 Temperature 98.4 F Pulse Rate 80 Respiratory 16 18 18 Rate Blood Pressure 137/71 (mmHg) O2 Sat by Pulse 98 Oximetry 08/14/18 08/14/18 08/14/18 09:57 11:22 14:52 Temperature 98.2 F Pulse Rate 70 Respiratory 16 18 18 Rate Blood Pressure 111/61 (mmHg) O2 Sat by Pulse 96 Oximetry Oxygen Devices in Use Now: None Result Diagrams: 08/14/18 06:54 08/14/18 06:54 Microbiology and Other Data: Microbiology 08/12/18 11:20 Urine Culture - Final Urine No Growth (<1,000 CFU/mL) 08/13/18 01:51 Stool Gross Appearance - Final Stool C. difficile DNA Amplification - Final 027 Presumptive NEGATIVE Toxigenic C.diff NEGATIVE 08/12/18 18:30 Stool Gross Appearance - Final Stool Assess/Plan/Problems-Billing Assessment: - Patient Problems (1) Epigastric pain Current Visit: Yes Status: Acute Code(s): R10.13 - EPIGASTRIC PAIN SNOMED Code(s): 11449265 Comment: -Initially thought to be due to retained stoned post-cholecystectomy, however, MRCP did not reveal any stones in CBD given CTA of abd shows intrahepatic and extrahepatic biliary dilatation at level of CBD -Possible that she could have already passed a retained stone, hence, radiation of pain to the back? -Per Dr. Romano, no ERCP for now given resolution of abd pain and improving LFTsmay reconsider if pt becomes symptomatic once more or LFTs increasing -LFTs today primarily improved except for markers of biliary/hepatic congestion , i.e., total bilirubin and ALP. Interestingly, the elevated bilirubin is 2/3 indirect and 1/3rd direct. -Colonoscopy surveillance per Dr. Romano reveals purulent ileitis/colitis?? Possibly due to Chrons disease given pt afebrile without leukocytosis and now with resolved abd pain -Doubt ischemic colitis given no suggestion of this from my conversation with Dr. Romano post-colonoscopy, pt having stable VS with no incidence of hypotension, and LDH and lactate level being normal -No evidence of acute pancreatitis (2) Elevated LFTs Current Visit: Yes Status: Acute Code(s): R94.5 - ABNORMAL RESULTS OF LIVER FUNCTION STUDIES SNOMED Code(s): 193520924 Comment: -Please see above discussion -Awaiting viral hepatitis screen, especially A&E given diarrhea (3) Diarrhea Current Visit: Yes Status: Acute Code(s): R19.7 - DIARRHEA, UNSPECIFIED SNOMED Code(s): 95755554 Comment: -Unclear cause, however, given above colonoscopy findings in absence of leukocytosis and fevers, possible that pt may have Crohns disease, usually associated with PSC; however, no beaded appearance suggestive of this in MRCP and thus maybe due independent events that happen to co-present on this admission -Occasionally bloody -(+)Stool lactoferrin supportive of inflammatory observation made during colonoscopy -C. diff (-) -Awaiting results of stool culture -Hold Abx for now -Given stool electrolytes was not collected until post-colonoscopy when pt already receiving immodium, unlikely to be helpfuld/w Dr. Scherer yesterday -Tolerates low fat, low fiber, low lactose diet (4) Chest pain Current Visit: Yes Status: Acute Code(s): R07.9 - CHEST PAIN, UNSPECIFIED SNOMED Code(s): 45765239 Comment: -Resolved -Likely from misinterpreted epigastric pain described above -CTA Chest (-) for PE (5) GERD (gastroesophageal reflux disease) Current Visit: Yes Status: Acute Code(s): K21.9 - GASTRO-ESOPHAGEAL REFLUX DISEASE WITHOUT ESOPHAGITIS SNOMED Code(s): 228985846 Comment: -Continue Pantoprazole (6) DVT prophylaxis Current Visit: Yes Status: Acute Code(s): [id number] - SNOMED Code(s): 831387871 Comment: -Continue SCDs given intermittent BRBPR reported by pt Status and Disposition: -For possible D/C in AM if pt continues to improve clinically -Will touch base with Dr. Romano in AM
[2018-08-14] MEDS ORDERED: Simethicone LIQ* 40 MG/0.6 ML UD ORAL SYRINGE PO PRN ×2 (21:05→22:00)
[2018-08-15] MEDS: NS 0.9% 1000 ML* 1,000 ML IV SCH (06:36)
[2018-08-15 07:25] LABS: Hematocrit 38 % (35-47); Hemoglobin 13.2 g/dl (12.0-16.0); Mean Corpuscular HGB Conc 34 g/dl (31-36); Mean Corpuscular Hemoglobin 31 pg (27-31); Mean Corpuscular Volume 91 fL (80-97); Mean Platelet Volume 7.8 um3 (7.4-10.4); Platelet Count 246 10^3/ul (150-450); Red Blood Count 4.24 10^6/ul (4.00-5.40); Red Cell Distribution Width 14 % (10.5-15); White Blood Count 6.8 10^3/ul (3.5-10.8)
[2018-08-15 07:46] LABS: EGFR Non-African American 90.1 (>60)
[2018-08-15] MEDS ORDERED: Magnesium Sulfate 2 GM IV* 2 GM/50 ML BAG IVPB ONE (07:50)
--- NOTE | 2018-08-15 07:58 | RAD ---
Indication: Abdominal pain. Flat plate of the abdomen demonstrates no free air. No dilated loops of bowel are noted. This is a limited study as no upright film is identified. IMPRESSION: No dilated loops of bowel are noted. Limited supine film does not demonstrate obvious free air although the study is limited. R1NF
[2018-08-15] MEDS: Gabapentin CAP(*) 400 MG PO SCH (09:28)
[2018-08-15] MEDS: Loperamide CAP* 2 MG PO PRN (09:36)
[2018-08-15] MEDS ORDERED: Morphine VIAL* 4 MG/ML VIAL (1 ml vial) IV PRN (13:15)
[2018-08-15] MEDS: Pantoprazole IV* 40 MG IV SCH (13:25)
[2018-08-15 13:47] VITALS: BP 107/62
--- NOTE | 2018-08-16 03:40 | DS ---
CC: Dr. Ray; Dr. Abdi Denny; Dr. Reji Romano; Dr. Cheyenne Madrid * DISCHARGE SUMMARY: DATE OF ADMISSION: DATE OF DISCHARGE: DISCHARGE DIAGNOSES: Are as follows: 1. Epigastric pain with elevated LFTs possibly due to retained stone post cholecystectomy that has subsequently passed. 2. Elevated LFTs, improving. 3. Colitis, likely due to inflammatory cause; biopsy pending. 4. Diarrhea accompanied by abdominal pain. Abdominal pain present only with diarrhea. 5. Chest pain, resolved likely secondary to #1. 6. Gastroesophageal reflux disease. DISCHARGE MEDICATIONS: Are as follows: 1. Gabapentin 400 mg p.o. b.i.d. 2. Loperamide 2 mg p.o. q.8 p.r.n. 3. Simethicone 20 mg p.o. t.i.d. 4. Glucosamine chondroitin capsule 1 cap p.o. daily. 5. Magnesium oxide 400 mg p.o. daily. 6. Omeprazole 20 mg p.o. daily. 7. Percocet 7.5/325 p.o. q.6 p.r.n. dispensed 12 tablets with zero refills - the patient was advised to call PCP for any refills of controlled substances. 8. Ranitidine 150 mg p.o. daily. 9. Risedronate 150 mg p.o. q. monthly. 10. Spironolactone 25 mg p.o. daily. HISTORY OF PRESENT ILLNESS/HOSPITAL COURSE: The patient is a 68-year-old lady with history of GERD, cholecystectomy and 2 C-sections who presented to the hospital on 08/12/18 with a chief complaint of epigastric pain , chest pain radiating to the back accompanied by diarrhea. During her initial evaluation, she had CTA of her chest, abdomen and pelvis which ruled out a PE and dissection given the chest pain reported radiating to the back and shows that she is status post cholecystectomy with an intrahepatic and extrahepatic biliary dilatation extending to the level of the common duct. There is some prominence of vasculature along the left hemipelvis suggestive of pelvic congestion syndrome in the correct clinical setting as well as diverticulosis. She also had an MRCP on the same day a few hours apart from her CT angio, which showed an intrahepatic and extrahepatic biliary dilatation extending to the level of the ampulla without any appreciable filling defect to suggest a common duct stone. Since there is no common duct stone or masses found in the MRCP, an ERCP was not done and it is possible that she still had a choledocholithiasis that has just recently passed as the negative MRCP was also accompanied by improvement of her LFTs especially her total bilirubin and alkaline phosphatase. However, her diarrhea persisted and mentions that she only has abdominal pain only during diarrhea which is a change in quality from her presentation where all of her symptoms are all present instead of being related to a temporary sequence of events. She was also seen in consultation by Dr. Romano who performed a colonoscopy with biopsy and found a purulent ileitis and colitis possibly due to an inflammatory bowel disease such as Crohn' s disease. Possibilities ranged from possibly presentation of Crohn's with possible hepatic involvement such as primary sclerosing cholangitis; however, PSC was not confirmed with MRCP and hence p-ANCA was not sent. It is still possible that she is in the early phase of the disease process in which the radiological imaging does not necessarily show a bleeding pattern. She was advised to follow up with Dr. Romano in 10 days and to repeat CBC, CRP, LFTs, and lipase on Tuesdays and . She had been advised to follow up and/or call her PCP within 3 days post discharge. She was advised to follow up with Dr. Romano in 10 days post discharge and to call and/or make an appointment by calling [phone]. She was also asked to obtain blood draws on Wednesday, which is tomorrow, 08/16/18 as well as for the following blood draws: CBC, CRP, LFTs, and lipase and discuss these results with Dr. Romano in followup. She was advised to repeat blood draws for magnesium in 2 weeks and touch base with her PCP regarding results to see if she needs any more supplementations. She was advised to hold her statins until she has been reevaluated by her PCP and she was advised to call her PCP if she needs refills on her Percocet. If her symptoms resume or develop new ones or feel unwell for any reason, she was advised to call her PCP first. If her PCP cannot entertain her due to scheduling issues alone, she was advised to call [facility] if the issue is considered nonemergent. She was advised to call my office regarding any questions, concerns, or further clarifications regarding her discharge plans and/or prescriptions and to take her medications as prescribed. REVIEW OF SYSTEMS: She currently denies any recent headaches, dizziness, fevers , chills, nausea, vomiting, chest pain, shortness of breath, increased cough and /or sputum production. She does complain of abdominal pain only when she has loose bowel movements and she has been advised to take her Imodium p.r.n. She denied any myalgias, arthralgias, throat pain, or new skin lesions. The rest of the 14-point review of systems other than what was described are otherwise unremarkable. PHYSICAL EXAMINATION: Shows the most recent vital signs of records with blood pressure of 107/62, 66 beats per minute heart rate, 18 per minute respiratory rate, saturating at 98% on room air, 98.3 degrees Fahrenheit. General Appearance: The patient is awake, alert, and oriented x3, not in acute distress. HEENT: Normocephalic, atraumatic. PERRLA. Extraocular muscles intact. Negative for icterus. Moist oral mucosa. Negative throat erythema. Neck is soft, supple, with no cervical lymphadenopathy. No JVD. Heart: S1, S2 within normal limits. Regular rate and rhythm. No murmurs, rubs, and gallops. Chest: Clear to auscultation bilaterally. Good air entry. No wheezes, rales, or rhonchi. Abdomen is soft, nondistended, slightly tender on deep palpation in the epigastric area. Otherwise nonsurgical abdomen. Extremities: No cyanosis, clubbing, or edema. Psychiatric: No active psychosis , depression, suicidal or homicidal ideations. Skin is warm to touch. TIME SPENT: The total time spent evaluating the patient, reviewing pertinent data, and appropriate documentation is 60 minutes. [id number]/[facility] #: [id number] MTDD
== END 2018-08-15 15:45 | disposition home or self-care (01) | DRG 395 ==
LOC: ED 09:05 → MED 13:06
PROVIDERS: ADMIT Internal Medicine; ATTEND Student in an Organized Health Care Education/Training Program
PROC: 0DDB8ZX Extraction of Ileum, Via Natural or Artificial Opening Endoscopic, Diagnostic (ICD-10-PCS; principal; 2018-08-13)
PROC: 0DDF8ZX Extraction of Right Large Intestine, Via Natural or Artificial Opening Endoscopic, Diagnostic (ICD-10-PCS; 2018-08-13)
DX: K91.86 Retained cholelithiasis following cholecystectomy (principal); R94.5 Abnormal results of liver function studies; K52.89 Other specified noninfective gastroenteritis and colitis; R07.9 Chest pain, unspecified; K21.9 Gastro-esophageal reflux disease without esophagitis; K52.9 Noninfective gastroenteritis and colitis, unspecified; M81.0 Age-related osteoporosis without current pathological fracture; M85.80 Other specified disorders of bone density and structure, unspecified site; G89.29 Other chronic pain; K57.30 Diverticulosis of large intestine without perforation or abscess without bleeding; Z80.0 Family history of malignant neoplasm of digestive organs; Z79.899 Other long term (current) drug therapy; Z88.1 Allergy status to other antibiotic agents; Z88.0 Allergy status to penicillin; Z88.2 Allergy status to sulfonamides; Z88.8 Allergy status to other drugs, medicaments and biological substances; Z91.018 Allergy to other foods; Z82.49 Family history of ischemic heart disease and other diseases of the circulatory system
CPT/HCPCS: 36415; 71045; 71275; 74018; 74174; 74181; 76376; 80048; 80053; 80074; 80076; 81003; 81015; 82248; 83605; 83615; 83630; 83690; 83735; 83880; 84100; 84484; 85014; 85018; 85025; 85027; 85610; 85730; 86140; 86141; 86803; 87045; 87046; 87077; 87086; 87493; 87899; 88305; 93005; 96374; 96375; 99156; 99157; 99202; 99283; A9270-GY; G0463; J2250; J2270; J3010; J3475; Q9967